=== PATIENT | male | born 1955 | race American Indian/Alaskan Native ===

== ENCOUNTER 2020-06-06 08:09 | Day surgery (SDC) | payer OTHER ==
[2020-06-06 09:13] LABS: Hematocrit 41.2 % (35.5-45.6); Hemoglobin 14.4 gm/dl (11.8-15.2); Mean Corpuscular HGB Conc 35 % (32-34); Mean Corpuscular Volume 99 fl (84-94); Platelet Count 131 K/mm3 (140-440); Red Blood Count 4.16 M/mm3 (3.65-5.03); Red Cell Distribution Width 12.5 % (13.2-15.2)
[2020-06-06 09:21] LABS: INR 0.95 (0.87-1.13)
[2020-06-06 09:22] LABS: Partial Thromboplastin Time 31.6 Sec. (24.2-36.6)
[2020-06-06] MEDS ORDERED: LIDOCAINE (1%) 10 MG/1 ML VIAL 20 ML MDV ONE (09:28)
[2020-06-06] MEDS ORDERED: HYDROmorphone 1 MG/1 ML INJ ONE ×2 (09:41→09:42)
[2020-06-06] MEDS ORDERED: ONDANSETRON 4 MG/2 ML INJ IV ONE (09:41)
[2020-06-06] MEDS ORDERED: ONDANSETRON 4 MG/2 ML INJ ONE (09:42)
[2020-06-06] MEDS ORDERED: HYDROmorphone 1 MG/1 ML INJ IV PRN (10:00)
[2020-06-06 11:34] VITALS: BP 121/74
--- NOTE | 2020-06-06 12:05 | Cat Scan Report ---
CT-GUIDED BONE MARROW ASPIRATION AND BIOPSY INDICATION : Thrombocytopenia, anemia, monoclonal gammopathy PROCEDURE: The risks (including but not limited to bleeding and infection) and benefits were explain ed to the patient and informed consent was obtained. All CT examinations performed at this facility utilize dose modulation, iterative reconstruction or weight-based dosing, when appropriate, to reduce radiation dose to as low as reasonably achievable. A time out procedure was performed. The procedu re site was prepped and draped in the usual sterile fashion and lidocaine was used for local anesthes ia. Under CT guidance, the right posterior iliac wing was selected for biopsy. An 11 gauge needle was ad vanced to the posterior margin of the iliac wing, cortex breached, and 4.5 mL bone marrow aspirate ob tained. The needle was then advanced and a bone marrow biopsy was obtained measuring approximately 2 cm. Samples were given directly to the auto brake technician who was present during the exam. The patient tolerated the procedure well with no complications. IMPRESSION: Technically successful bone marrow aspirate and biopsy. Signer Name: Dav De La Torre Jr, MD Signed: 06/06/2020 12:00 PM Workstation Name: [id number]
[2020-06-06 13:19] LABS: Total Cells Counted 100
[2020-06-06 13:20] LABS: Basophils % (Manual) 0 % (0.0-1.8); Eosinophils % (Manual) 0 % (0.0-4.3); RBC Morphology Normal
[2020-06-06 13:21] LABS: Platelet Estimate Consistent w Auto
== END 2020-06-06 12:00 | disposition home or self-care (01) ==
LOC: CATHLABREC 08:09
PROVIDERS: ATTEND Internal Medicine Hematology
DX: D64.9 Anemia, unspecified (principal); D47.2 Monoclonal gammopathy; D69.6 Thrombocytopenia, unspecified; I10 Essential (primary) hypertension; Z98.890 Other specified postprocedural states; Z79.899 Other long term (current) drug therapy
CPT/HCPCS: 36415; 38222; 85007; 85025; 85097; 85610; 85730; 88184; 88185; 88230; 88291; 88305; J1170; J2405; 38220; 88161; 88311; 96374; 96375

== ENCOUNTER 2021-05-05 09:17 | Outpatient (CLI) | payer BC ==
[2021-05-05] MEDS ORDERED: HYDROmorphone 1 MG/1 ML INJ IV NR (10:02)
[2021-05-05] MEDS ORDERED: ONDANSETRON 4 MG/2 ML INJ IV NR (10:03)
[2021-05-05 10:38] LABS: Hematocrit 31.1 % (35.5-45.6); Hemoglobin 10.7 gm/dl (11.8-15.2); Mean Corpuscular HGB Conc 35 % (32-34); Mean Corpuscular Volume 103 fl (84-94); Red Blood Count 3.03 M/mm3 (3.65-5.03)
[2021-05-05 10:45] LABS: Platelet Count 93 K/mm3 (140-440)
[2021-05-05 10:49] LABS: INR 0.99 (0.87-1.13)
[2021-05-05 10:50] LABS: Partial Thromboplastin Time 33.7 Sec. (24.2-36.6)
[2021-05-05] MEDS ORDERED: SODIUM CHLORIDE 0.9% 500 ML 500 ML IV SCH (11:00)
[2021-05-05 11:18] LABS: Platelet Estimate Consistent w Auto; RBC Morphology Normal; Total Cells Counted 100
[2021-05-05] MEDS ORDERED: HYDROmorphone 1 MG/1 ML INJ IV ONE (12:17)
[2021-05-05] MEDS ORDERED: LIDOCAINE (1%) 10 MG/1 ML VIAL 20 ML MDV ONE (13:23)
--- NOTE | 2021-05-05 14:58 | Cat Scan Report ---
CT-GUIDED BONE MARROW ASPIRATION AND BIOPSY INDICATION : Thrombocytopenia PROCEDURE: The risks (including but not limited to bleeding and infection) and benefits were explain ed to the patient and informed consent was obtained. All CT examinations performed at this facility utilize dose modulation, iterative reconstruction or weight-based dosing, when appropriate, to reduce radiation dose to as low as reasonably achievable. A time out procedure was performed. The procedu re site was prepped and draped in the usual sterile fashion and lidocaine was used for local anesthes ia. Under CT guidance, the right posterior iliac wing was selected for biopsy. An 11 gauge needle was ad vanced to the posterior margin of the iliac wing, cortex breached, and 4.5 mL bone marrow aspirate ob tained. The needle was then advanced and a bone marrow biopsy was obtained measuring approximately 2 cm. Samples were given directly to the information technology technician who was present during the exam. The patient tolerated the procedure well with no complications. IMPRESSION: Technically successful bone marrow aspirate and biopsy. Signer Name: Dav De La Torre Jr, MD Signed: 05/05/2021 2:54 PM Workstation Name: [id number]
[2021-05-05 15:33] VITALS: BP 167/89
== END 2021-05-05 09:18 | disposition home or self-care (01) ==
LOC: CT 09:17
PROVIDERS: ATTEND Internal Medicine Hematology
DX: D69.6 Thrombocytopenia, unspecified (principal); C90.00 Multiple myeloma not having achieved remission; D47.2 Monoclonal gammopathy; Z87.891 Personal history of nicotine dependence; Z79.899 Other long term (current) drug therapy
CPT/HCPCS: 36415; 38222; 85025; 85097; 85610; 85730; 88184; 88185; 88230; 88291; 88305; J1170; J2405; 85007; 88161; 88311; 88313; J7040